=== PATIENT | male | born 1945 | race Hispanic/Latino ===

== ENCOUNTER 2018-05-03 12:13 | Inpatient (IN) | payer OTHER ==
--- NOTE | 2018-05-03 13:08 | RAD REPORT ---
EXAM DESCRIPTION: RAD - Chest Single View - 05/03/2018 12:58 pm CLINICAL HISTORY: CHEST PAIN Chest pain. COMPARISON: CHEST SINGLE VIEW dated 04/16/2014; CHEST SINGLE VIEW dated 07/24/2010 FINDINGS: Portable technique limits examination quality. The lungs are grossly clear. The heart is normal in size. No displaced fractures. IMPRESSION: No acute intrathoracic process suspected.
[2018-05-03] MEDS ORDERED: ASPIRIN 81 MG CHEWABLE TABLET ONE ×2 (13:32→14:07)
[2018-05-03] MEDS ORDERED: FAMOTIDINE 20 MG/2 ML VIAL IV ONE (13:33)
[2018-05-03] MEDS ORDERED: METOPROLOL TAR 25 MG TAB ONE (13:33)
[2018-05-03] MEDS ORDERED: ENOXAPARIN 80 MG/0.8 ML SQ ONE (13:33)
[2018-05-03] MEDS ORDERED: NA CHLORIDE 0.9% 1,000 ML ONE (13:33)
[2018-05-03 13:36] LABS: ALT/SGPT 29 U/L (12-78); AST/SGOT 24 U/L (15-37); Albumin 3.8 g/dL (3.4-5.0); Alkaline Phosphatase 84 U/L (45-117); BUN Blood Urea Nitrogen 10 mg/dL (7-18); Bicarbonate 28 mmol/L (21-32); Bilirubin Direct < 0.1 mg/dL (0-0.2); Bilirubin Total 0.4 mg/dL (0.2-1.0); Glucose Level 120 mg/dL (74-106); Magnesium 2.4 mg/dL (1.8-2.4); NT PRO-BNP 452 pg/mL (<125); Potassium 3.6 mmol/L (3.5-5.1); Protein, Total 7.9 g/dL (6.4-8.2); Sodium Level 135 mmol/L (136-145); Troponin (Emerg Dept Use Only) 0.12 ng/mL (0.0-0.045)
[2018-05-03 13:41] LABS: Protime INR 0.98
[2018-05-03 13:45] LABS: Absolute Lymphocytes (CBC) 1.9 K/uL (0.7-4.9); Absolute Monocytes 0.6 K/uL (0.1-1.3); Absolute Neutrophil 3.3 K/uL (1.8-8.0); Basophils % 0.9 % (0-1.3); Eosinophils % 5.4 % (0-4.4); Hematocrit 44.1 % (39.6-49.0); Lymphocytes % 30.9 % (15.3-44.8); Monocytes % 10.3 % (3.3-12.3); RBC Red Blood Cell Count 4.68 M/uL (4.33-5.43)
--- NOTE | 2018-05-03 13:53 | ER ---
Nurse's Notes [facility] Name: Matti Lyles Sr Age: 72 yrs Sex: Male : 1945 Arrival Date: 05/03/2018 Time: 12:18 Bed 20 Private MD: None, None Diagnosis: Other chest pain;Non-ST elevation (NSTEMI) myocardial infarction;Essential (primary) hypertension Presentation: 05/03 12:26 Presenting complaint: Patient states: Left leg pain for 1 month and sternal chest pain aj that started this AM. Reports "real bad heartburn" recently. Transition of care: patient was not received from another setting of care. Onset of symptoms was May 03, 2018. Risk Assessment: Do you want to hurt yourself or someone else? Patient reports no desire to harm self or others. Initial Sepsis Screen: Does the patient meet any 2 criteria? No. Patient's initial sepsis screen is negative. Does the patient have a suspected source of infection? No. Patient's initial sepsis screen is negative. Care prior to arrival: None. 12:26 Method Of Arrival: Ambulatory aj 12:26 Acuity: MIGUEL 2 aj Triage Assessment: 12:27 General: Appears in no apparent distress. comfortable, Behavior is calm, cooperative, aj appropriate for age. Pain: Complains of pain in mid-sternal area and left leg. Neuro: Level of Consciousness is awake, alert, obeys commands, Oriented to person, place, time, situation, Appropriate for age. Cardiovascular: Reports chest pain, Capillary refill < 3 seconds in bilateral fingers Patient's skin is warm and dry. Respiratory: Airway is patent Respiratory effort is even, unlabored, Respiratory pattern is regular, symmetrical. Derm: Skin is intact, is healthy with good turgor, Skin is pink, warm \\T\\ dry. normal. Musculoskeletal: Reports pain in left leg. Historical: - Allergies: 12:27 No Known Allergies; aj - Home Meds: 12:27 aspirin 325 mg Oral TbEC 1 tab once daily [Active]; aj - PMHx: 12:27 None; aj - PSHx: 12:27 Colonoscopy; aj - Immunization history:: Adult Immunizations not up to date. - Social history:: Smoking status: Patient/guardian denies using tobacco. - Ebola Screening: : Patient negative for fever greater than or equal to 101.5 degrees Fahrenheit, and additional compatible Ebola Virus Disease symptoms Patient denies exposure to infectious person Patient denies travel to an Ebola-affected area in the 21 days before illness onset No symptoms or risks identified at this time. - Family history:: not pertinent. Screenin:38 Abuse screen: Denies threats or abuse. Denies injuries from another. Nutritional sv screening: No deficits noted. Tuberculosis screening: No symptoms or risk factors identified. Fall Risk None identified. Assessment: 13:20 General: Appears in no apparent distress. comfortable, well developed, Behavior is sv calm, cooperative, appropriate for age. Pain: Complains of pain in anterior aspect of left upper chest Pain does not radiate. Pain currently is 4 out of 10 on a pain scale. Is intermittent. Neuro: Level of Consciousness is awake, alert, obeys commands, Oriented to person, place, time, situation, Moves all extremities. Full function Speech is normal. Cardiovascular: Heart tones S1 S2 present Patient's skin is warm and dry. Pulses are 3+ in right radial artery and left radial artery. Respiratory: Respiratory effort is even, unlabored, Respiratory pattern is regular, symmetrical, Breath sounds are clear bilaterally. Denies shortness of breath. GI: Reports indigestion. Derm: Skin is pink, warm \\T\\ dry. 14:10 Reassessment: Patient appears in no apparent distress at this time. Patient and/or sv family updated on plan of care and expected duration. Pain level reassessed. Patient is alert, oriented x 3, equal unlabored respirations, skin warm/dry/pink. 14:30 Reassessment: Patient appears in no apparent distress at this time. Patient and/or ss family updated on plan of care and expected duration. Pain level reassessed. Son remains at bedside. Pt reports feeling better. Awaiting for Dr. Rosenbaum' consultation. Patient is aware of admission to ICU for further evaluation and treatment. Patient states feeling better. Patient states symptoms have improved. 15:06 Reassessment: Dr. Rosenbaum at bedside. ss 15:06 Reassessment: Patient appears in no apparent distress at this time. Patient and/or ss family updated on plan of care and expected duration. Pain level reassessed. Patient is alert, oriented x 3, equal unlabored respirations, skin warm/dry/pink. 15:15 Reassessment: Dr. Rosenbaum has told patient and family member that he shall have ss angioplasty with possible stent placement in the morning. 17:12 Reassessment: Patient appears in no apparent distress at this time. Patient and/or sv family updated on plan of care and expected duration. Pain level reassessed. Patient is alert, oriented x 3, equal unlabored respirations, skin warm/dry/pink. Left a voicemail on Dr Black's cell phone regarding vitals. 17:15 Reassessment: Pt given dinner tray. sv 17:45 Reassessment: Called Dr Black. Informed her of pt's recent vitals. Medication ordered, sv Lisinopril 10 mg PO x 1. Vital Signs: 12:27 BP 190 / 88; Pulse 59; Resp 20; Temp 97.7; Pulse Ox 100% on R/A; Weight 86.18 kg; aj Height 5 ft. 10 in. (177.80 cm); 13:45 BP 194 / 80; Pulse 61 MON; Resp 21; Pulse Ox 100% ; sv 14:30 BP 198 / 87; Pulse 65; Resp 15; Pulse Ox 99% ; ss 15:00 BP 135 / 93; Pulse 67; Resp 16; Pulse Ox 100% ; ss 15:30 BP 152 / 103; Pulse 61; Resp 19; Pulse Ox 98% ; ss 16:00 BP 167 / 97; Pulse 56; Resp 19; Pulse Ox 98% ; sv 17:08 BP 196 / 91; Pulse 57; Resp 16; Pulse Ox 98% ; sv 12:27 Body Mass Index 27.26 (86.18 kg, 177.80 cm) aj 13:45 Sinus Rhythm sv ED Course: 12:18 Patient arrived in ED. sb2 12:19 None, None is Private Physician. sb2 12:27 Triage completed. aj 12:27 Arm band placed on left wrist. Patient placed in waiting room, Patient No ER rooms aj available at this time. 2 rooms needing to be clean. 12:37 Rashida Green RN is Primary Nurse. sv 12:38 Patient has correct armband on for positive identification. Bed in low position. sv 12:47 Bret Hargrove MD is Attending Physician. skyler 12:54 X-ray completed. Portable x-ray completed in exam room. Patient tolerated procedure la2 well. 12:59 XRAY Chest (1 view) In Process Unspecified. EDMS 13:01 Initial lab(s) drawn, by me, sent to lab. Inserted saline lock: 20 gauge in right dh3 antecubital area, using aseptic technique. Blood collected. 13:10 US Extremity Venous W Compression Saurabh In Process Unspecified. EDMS 13:20 monitoring and evaluation advisor on. Pulse ox on. NIBP on. Door closed. Warm blanket given. Head of bed sv elevated. 13:20 Patient maintains SpO2 saturation greater than 95% on room air. sv 13:38 EKG done, by lead slot technician. reviewed by Bret Hargrove MD. at1 13:52 Geneva Black MD is Hospitalizing Provider. skyler 14:05 EKG done, by lead slot technician. reviewed by Bret Hargrove MD. tc 14:34 Ultrasound completed. Patient tolerated well. aa4 17:44 No provider procedures requiring assistance completed. Patient admitted, IV remains in sv place. intact. Administered Medications: 13:34 Drug: Pepcid 20 mg Route: IVP; Site: right antecubital; sv 14:02 Follow up: Response: No adverse reaction sv 13:35 Drug: Lovenox 1 mg/kg Route: Sub-Q; Site: right lower abdomen; sv 14:03 Follow up: Response: No adverse reaction sv 13:35 Drug: Lopressor 25 mg Route: PO; sv 14:03 Follow up: Response: No adverse reaction sv 13:35 Drug: NS 0.9% 1000 ml Route: IV; Rate: 75 ml/hr; Site: right antecubital; sv 17:44 Follow up: Response: No adverse reaction; IV Status: Infusion continued upon admission sv 13:36 CANCELLED (pt took an ASA 325 mg PO this morning): Aspirin 81 mg PO once sv 14:10 Drug: Zofran 4 mg Route: IVP; Site: right antecubital; sv 14:30 Follow up: Response: No adverse reaction sv 14:12 Drug: PlaVIX 600 mg Route: PO; sv 14:30 Follow up: Response: No adverse reaction sv 14:12 Drug: morphine 2 mg Route: IVP; Site: right antecubital; sv 14:30 Follow up: Response: No adverse reaction sv 14:12 Drug: Aspirin 81 mg Route: PO; sv 14:30 Follow up: Response: No adverse reaction sv 14:38 Not Given (Physician Discretion): Zocor 40 mg PO once ss 14:38 Drug: Lipitor 40 mg Route: PO; ss 15:39 Follow up: Response: No adverse reaction ss 17:54 Drug: Lisinopril 10 mg Route: PO; sv 17:54 Follow up: Response: Medication administered at discharge. sv Outcome: 13:52 Decision to Hospitalize by Provider. skyler 17:44 Admitted to ICU accompanied by nurse, accompanied by tech, family with patient, via sv stretcher, room 6, with chart, Report called to Robina HIGHTOWER 17:44 Condition: stable 17:44 Instructed on the need for admit. 18:18 Patient left the ED. sv Signatures: Dispatcher [employer] EDRashida Zacarias RN Bebe Daniel RN Bret Du MD MD cha Frazier, Amanda aa4 Khloe Rabago RN RN ss Gonzales, Amanda, heating and ventilation engineer EKG Tat1 Jane Herndon, heating and ventilation engineer EKG Ttc Waleska Edouard3 Kasey Purcell2 Alecia Carias2 Corrections: (The following items were deleted from the chart) 12:30 12:27 Arm band placed on left wrist. Patient placed in an exam room, bridgett urias 12:33 12:26 Acuity: MIGUEL 3 bridgett urias
--- NOTE | 2018-05-03 13:53 | EDPHYS ---
Physician Documentation [facility] Name: Matti Lyles Sr Age: 72 yrs Sex: Male : 1945 Arrival Date: 05/03/2018 Time: 12:18 Bed 20 Private MD: None, None ED Physician Bret Hargrove HPI: 05/03 13:45 This 72 yrs old Male presents to ER via Ambulatory with complaints of Chest skyler Pain > 30 y/o, Leg Pain. 13:45 The patient or guardian reports chest pain that is located primarily in the anterior skyler chest wall, left. Onset: just prior to arrival, this morning. The pain does not radiate. Associated signs and symptoms: The patient has no apparent associated signs or symptoms. The chest pain is described as a pressure. Duration: The patient or guardian reports multiple episodes, that wax and wane. Modifying factors: The symptoms are alleviated by nothing. Severity of pain: At its worst the pain was mild moderate in the emergency department the pain is unchanged. The patient has not experienced similar symptoms in the past. Historical: - Allergies: 12:27 No Known Allergies; aj - Home Meds: 12:27 aspirin 325 mg Oral TbEC 1 tab once daily [Active]; aj - PMHx: 12: None; aj - PSHx: 12: Colonoscopy; aj - Immunization history:: Adult Immunizations not up to date. - Social history:: Smoking status: Patient/guardian denies using tobacco. - Ebola Screening: : Patient negative for fever greater than or equal to 101.5 degrees Fahrenheit, and additional compatible Ebola Virus Disease symptoms Patient denies exposure to infectious person Patient denies travel to an Ebola-affected area in the 21 days before illness onset No symptoms or risks identified at this time. - Family history:: not pertinent. ROS: 13:45 Constitutional: Negative for fever, chills, and weight loss, Eyes: Negative for injury, skyler pain, redness, and discharge, ENT: Negative for injury, pain, and discharge, Neck: Negative for injury, pain, and swelling, Respiratory: Negative for shortness of breath, cough, wheezing, and pleuritic chest pain, Abdomen/GI: Negative for abdominal pain, nausea, vomiting, diarrhea, and constipation, Back: Negative for injury and pain, : Negative for injury, bleeding, discharge, and swelling, MS/Extremity: Negative for injury and deformity, Skin: Negative for injury, rash, and discoloration, Neuro: Negative for headache, weakness, numbness, tingling, and seizure, Psych: Negative for depression, anxiety, suicide ideation, homicidal ideation, and hallucinations, Allergy/Immunology: Negative for hives, rash, and allergies, Endocrine: Negative for neck swelling, polydipsia, polyuria, polyphagia, and marked weight changes, Hematologic/Lymphatic: Negative for swollen nodes, abnormal bleeding, and unusual bruising. 13:45 Cardiovascular: Positive for chest pain, of the left clavicle and anterior aspect of left upper chest and left leg. 13:45 MS/extremity: Positive for pain, of the left leg. Exam: 13:45 Constitutional: This is a well developed, well nourished patient who is awake, alert, skyler and in no acute distress. Head/Face: Normocephalic, atraumatic. Eyes: Pupils equal round and reactive to light, extra-ocular motions intact. Lids and lashes normal. Conjunctiva and sclera are non-icteric and not injected. Cornea within normal limits. Periorbital areas with no swelling, redness, or edema. ENT: Nares patent. No nasal discharge, no septal abnormalities noted. Tympanic membranes are normal and external auditory canals are clear. Oropharynx with no redness, swelling, or masses, exudates, or evidence of obstruction, uvula midline. Mucous membranes moist. Neck: Trachea midline, no thyromegaly or masses palpated, and no cervical lymphadenopathy. Supple, full range of motion without nuchal rigidity, or vertebral point tenderness. No Meningismus. Chest/axilla: Normal chest wall appearance and motion. Nontender with no deformity. No lesions are appreciated. Cardiovascular: Regular rate and rhythm with a normal S1 and S2. No gallops, murmurs, or rubs. Normal PMI, no JVD. No pulse deficits. Respiratory: Lungs have equal breath sounds bilaterally, clear to auscultation and percussion. No rales, rhonchi or wheezes noted. No increased work of breathing, no retractions or nasal flaring. Abdomen/GI: Soft, non-tender, with normal bowel sounds. No distension or tympany. No guarding or rebound. No evidence of tenderness throughout. Back: No spinal tenderness. No costovertebral tenderness. Full range of motion. Male : Normal genitalia with no discharge or lesions. Skin: Warm, dry with normal turgor. Normal color with no rashes, no lesions, and no evidence of cellulitis. Neuro: Awake and alert, GCS 15, oriented to person, place, time, and situation. Cranial nerves II-XII grossly intact. Motor strength 5/5 in all extremities. Sensory grossly intact. Cerebellar exam normal. Normal gait. Psych: Awake, alert, with orientation to person, place and time. Behavior, mood, and affect are within normal limits. 13:45 Musculoskeletal/extremity: Extremities: grossly normal except: noted in the left leg: pain. 13:51 Musculoskeletal/extremity: DVT Exam: No signs of deep vein thrombosis. no pain, no skyler swelling, no tenderness, negative Homans' sign noted on exam, no appreciated bluish discoloration, no erythema, no increased warmth, varicose veins. Vital Signs: 12:27 BP 190 / 88; Pulse 59; Resp 20; Temp 97.7; Pulse Ox 100% on R/A; Weight 86.18 kg; aj Height 5 ft. 10 in. (177.80 cm); 13:45 BP 194 / 80; Pulse 61 MON; Resp 21; Pulse Ox 100% ; sv 14:30 BP 198 / 87; Pulse 65; Resp 15; Pulse Ox 99% ; ss 15:00 BP 135 / 93; Pulse 67; Resp 16; Pulse Ox 100% ; ss 15:30 BP 152 / 103; Pulse 61; Resp 19; Pulse Ox 98% ; ss 16:00 BP 167 / 97; Pulse 56; Resp 19; Pulse Ox 98% ; sv 17:08 BP 196 / 91; Pulse 57; Resp 16; Pulse Ox 98% ; sv 12:27 Body Mass Index 27.26 (86.18 kg, 177.80 cm) 13:45 Sinus Rhythm sv MDM: 12:47 Patient medically screened. [facility] 13:47 Data reviewed: vital signs, nurses notes, lab test result(s), EKG, radiologic studies, [facility] CT scan, plain films. 05/03 12:38 Order name: Basic Metabolic Panel; Complete Time: 13:48 05/03 12:38 Order name: CBC with Diff; Complete Time: 14:08 05/03 12:38 Order name: LFT's; Complete Time: 13:48 sv 05/03 12:38 Order name: Magnesium; Complete Time: 13:48 sv 05/03 12:38 Order name: NT PRO-BNP; Complete Time: 13:48 sv 05/03 12:38 Order name: PT-INR; Complete Time: 14:08 sv 05/03 12:38 Order name: Troponin (emerg Dept Use Only); Complete Time: 13:48 sv 05/03 12:50 Order name: Urine Culture [facility] 05/03 12:50 Order name: Lipase; Complete Time: 13:48 skyler 05/03 14:01 Order name: CBC with Automated Diff EDMS 05/03 14:01 Order name: CBC with Automated Diff EDMS 05/03 14:01 Order name: CBC with Automated Diff EDMS 05/03 14:01 Order name: CBC with Automated Diff EDMS 05/03 14:01 Order name: CKMB Creatine Kinase MB EDMS 05/03 14:01 Order name: CKMB Creatine Kinase MB EDMS 05/03 14:01 Order name: CKMB Creatine Kinase MB EDMS 05/03 14:01 Order name: CKMB Creatine Kinase MB EDMS 05/03 14:01 Order name: Comprehensive Metabolic Panel EDMS 05/03 14:01 Order name: Comprehensive Metabolic Panel EDMS 05/03 14:01 Order name: Comprehensive Metabolic Panel EDMS 05/03 14:01 Order name: Comprehensive Metabolic Panel EDMS 05/03 14:01 Order name: Lipid Profile EDMS 05/03 14:01 Order name: Lipid Profile EDMS 05/03 14:01 Order name: Magnesium EDMS 05/03 14:01 Order name: Magnesium EDMS 05/03 14:01 Order name: Magnesium EDMS 05/03 14:01 Order name: Magnesium EDMS 05/03 14:01 Order name: Phosphorus EDMS 05/03 14:01 Order name: Phosphorus EDMS 05/03 14:01 Order name: Phosphorus EDMS 05/03 12:38 Order name: XRAY Chest (1 view); Complete Time: 13:48 sv 05/03 12:38 Order name: EKG; Complete Time: 12:38 sv 05/03 12:38 Order name: Cardiac monitoring; Complete Time: 13:36 sv 05/03 12:38 Order name: EKG - Nurse/Tech; Complete Time: 13:36 sv 05/03 12:38 Order name: IV Saline Lock; Complete Time: 13:06 sv 05/03 12:38 Order name: Labs collected and sent; Complete Time: 13:06 sv 05/03 12:50 Order name: US Extremity Venous W Compression Saurabh; Complete Time: 15:27 [facility] 05/03 13:49 Order name: EKG; Complete Time: 13:50 [facility] 05/03 14:01 Order name: CONS Physician Consult EDSD 05/03 14:01 Order name: Heart Healthy [facility]SD 05/03 14:01 Order name: Echo with Doppler [facility] 05/03 14:01 Order name: Troponin I [facility] 05/03 14:01 Order name: Troponin I [facility] 05/03 14:01 Order name: Troponin I [facility] 05/03 14:01 Order name: Troponin I [facility] 05/03 14:01 Order name: Thyroid Stimulating Hormone [facility] 05/03 14:01 Order name: Thyroid Stimulating Hormone [facility] 05/03 14:41 Order name: Urine Dipstick--Ancillary (enter results) 05/03 16:19 Order name: Urine Dipstick-Ancillary [facility] 05/03 12:38 Order name: O2 Per Protocol; Complete Time: 13:06 05/03 12:38 Order name: O2 Sat Monitoring; Complete Time: 13:06 05/03 12:50 Order name: Urine Dipstick-Ancillary (obtain specimen); Complete Time: 14:38 [facility] 05/03 13:49 Order name: EKG - Nurse/Tech; Complete Time: 14:01 [facility] Administered Medications: 13:34 Drug: Pepcid 20 mg Route: IVP; Site: right antecubital; sv 14:02 Follow up: Response: No adverse reaction sv 13:35 Drug: Lovenox 1 mg/kg Route: Sub-Q; Site: right lower abdomen; sv 14:03 Follow up: Response: No adverse reaction sv 13:35 Drug: Lopressor 25 mg Route: PO; sv 14:03 Follow up: Response: No adverse reaction sv 13:35 Drug: NS 0.9% 1000 ml Route: IV; Rate: 75 ml/hr; Site: right antecubital; sv 17:44 Follow up: Response: No adverse reaction; IV Status: Infusion continued upon admission sv 13:36 CANCELLED (pt took an ASA 325 mg PO this morning): Aspirin 81 mg PO once sv 14:10 Drug: Zofran 4 mg Route: IVP; Site: right antecubital; sv 14:30 Follow up: Response: No adverse reaction sv 14:12 Drug: PlaVIX 600 mg Route: PO; sv 14:30 Follow up: Response: No adverse reaction sv 14:12 Drug: morphine 2 mg Route: IVP; Site: right antecubital; sv 14:30 Follow up: Response: No adverse reaction sv 14:12 Drug: Aspirin 81 mg Route: PO; sv 14:30 Follow up: Response: No adverse reaction sv 14:38 Not Given (Physician Discretion): Zocor 40 mg PO once ss 14:38 Drug: Lipitor 40 mg Route: PO; ss 15:39 Follow up: Response: No adverse reaction ss 17:54 Drug: Lisinopril 10 mg Route: PO; sv 17:54 Follow up: Response: Medication administered at discharge. sv Disposition: 05/03/18 13:52 Hospitalization ordered by Geneva Black for Inpatient Admission. Preliminary diagnosis are Other chest pain, Non-ST elevation (NSTEMI) myocardial infarction, Essential (primary) hypertension. - Bed requested for Intensive Care Unit. - Status is Inpatient Admission. sv - Condition is Fair. - Problem is new. - Symptoms have improved. UTI on Admission? No Signatures: Dispatcher [employer] Rashida Watson RN RN sv Myers, Amanda, RN RN aj Anderson, Corey, MD MD cha Smirch, Shelby, RN RN ss Corrections: (The following items were deleted from the chart) 13:36 12:50 Aspirin 81 mg PO once ordered. replaced by [facility] 17:29 13:52 Hospitalization Ordered by Geneva Black MD for Inpatient Admission. Preliminary sv diagnosis is Other chest pain; Non-ST elevation (NSTEMI) myocardial infarction; Essential (primary) hypertension. Bed requested for Intensive Care Unit. Status is Inpatient Admission. Condition is Fair. Problem is new. Symptoms have improved. UTI on Admission? No. [facility] 18:18 17:29 05/03/2018 13:52 Hospitalization Ordered by Geneva Black MD for Inpatient sv Admission. Preliminary diagnosis is Other chest pain; Non-ST elevation (NSTEMI) myocardial infarction; Essential (primary) hypertension. Bed requested for Intensive Care Unit. Status is Inpatient Admission. Condition is Fair. Problem is new. Symptoms have improved. UTI on Admission? No. sv
[2018-05-03] MEDS ORDERED: MORPHINE 4 MG/ML SYR ONE (14:07)
[2018-05-03] MEDS ORDERED: ONDANSETRON 4 MG/2 ML VIAL ONE (14:07)
[2018-05-03] MEDS ORDERED: CLOPIDOGREL 75 MG TABLET ONE (14:07)
[2018-05-03] MEDS ORDERED: ATORVASTATIN 20 MG TAB ONE (14:37)
--- NOTE | 2018-05-03 14:42 | RAD REPORT ---
EXAM DESCRIPTION: US - Extrem Venous W Compress Saurabh - 05/03/2018 2:30 pm CLINICAL HISTORY: PAIN Bilateral leg edema and swelling. COMPARISON: No comparisons TECHNIQUE: Real-time sonographic interrogation of the left and right lower extremity deep venous sys tems was performed. FINDINGS: Normal compressibility, flow augmentation, phasic flow and spontaneous flow is identified in both the left and right lower extremity deep venous systems. IMPRESSION: No sonographic evidence of left or right lower extremity deep venous thrombosis.
[2018-05-03] MEDS: ENOXAPARIN 100 MG/ML SYR SQ SCH ×2 (15:00→20:11)
[2018-05-03] MEDS ORDERED: ATORVASTATIN 20 MG TAB PO ONE (15:00)
--- NOTE | 2018-05-03 15:17 | EKG ---
Test Date: 2018-05-03 Test Time: 13:54:23 [employer]: DT/T MEASUREMENT RESULTS: Intervals: Rate: 57 CA: 156 QRSD: 88 QT: 490 QTc: 476 [place]: P: 58 CA: 156 QRS: 22 T: 78 INTERPRETIVE STATEMENTS: Sinus bradycardia with occasional premature ventricular complexes Nonspecific ST abnormality Abnormal ECG Compared to ECG 05/03/2018 13:33:36 Ventricular premature complex(es) now present Prolonged QT interval no longer present ST (T wave) deviation still present Electronically Signed On 05-03-18 15:17:19 NURSE PRN by Deniz Rosenbaum
--- NOTE | 2018-05-03 15:18 | EKG ---
Test Date: 2018-05-03 Test Time: 13:33:36 [employer]: [place] MEASUREMENT RESULTS: Intervals: Rate: 55 RI: 152 QRSD: 86 QT: 506 QTc: 484 [place]: P: 55 RI: 152 QRS: 28 T: 64 INTERPRETIVE STATEMENTS: Sinus bradycardia Nonspecific ST abnormality Prolonged QT Abnormal ECG Compared to ECG 10/24/2014 15:52:02 ST (T wave) deviation now present Prolonged QT interval now present Sinus rhythm no longer present Ventricular premature complex(es) no longer present Electronically Signed On 05-03-18 15:17:27 MOVER by Deniz Rosenbaum
[2018-05-03 16:18] LABS: Urine Blood TRACE (NEG); Urine Glucose NEGATIVE (NEG); Urine Protein 1+ (NEG); Urine Specific Gravity 1.015 (1.005-1.030)
[2018-05-03] MEDS ORDERED: LISINOPRIL 10 MG TAB ONE (18:00)
[2018-05-03] MEDS ORDERED: KCL 20 MEQ/100 mL IVPB 20 MEQ/100 ML BAG IV SCH (19:10)
[2018-05-03] MEDS ORDERED: POTASSIUM CL SA 10 MEQ TAB PO ONE (19:17)
--- NOTE | 2018-05-03 19:18 | P.HP ---
Certification for Inpatient Patient admitted to: Inpatient With expected LOS: >2 Midnights Patient will require the following post-hospital care: None Practitioner: I am a practitioner with admitting privileges, knowledge of patient current condition, hospital course, and medical plan of care. Services: Services provided to patient in accordance with Admission requirements found in Title 42 Section 412.3 of the Code of Federal Regulations Patient History Date of Service: 05/04/18 History of Present Illness: A 72-year-old man, with significant past medical history presented to the ER complaining of having some chest pain Mr. Lyles started to having chest pain today at around 11:00 a.m. He was doing some sweeping at the house when the chest pain started. The patient states that he has been having some heartburn for past 1 month which has also been getting progressively worse. Chest pain was nonradiating and remained on the left side for the most part. Was dull in nature as well. Patient currently does not take any medication and states that he is usually in his good health until this episode started. Denies having any nausea vomiting shortness of breath fever chills diarrhea constipation at this time. Patient does have a strong family history where his father of a heart attack at the age of 74 and his brother of heart attack at the age of 50. In the ER patient had an EKG done. EKGs were nonspecific, and Troponin x1 was 0.12. Patient thus was admitted to the hospital with a diagnosis of non ST elevation [place] and further workup Allergies No Known Drug Allergies Allergy (Verified 05/03/18 18:10) Unknown Home Medications: Aspirin [Aspirin EC 81 MG] 1 tab PO DAILY 05/03/18 - Past Medical/Surgical History Has patient received pneumonia vaccine in the past: Yes Diabetic: No -: cataracts bilat eyes -: cataract left eye -: colonoscopy 40 years ago, possible removal of polyp - Family History Mother -: Hypertension, Stroke Father -: Heart disease, Hypertension Brother -: Heart disease Notes: 3 brother pass from heart attacks Sister -: Cancer - Social History Smoking Status: Never smoker Alcohol use: No CD- Drugs: No Caffeine use: Yes Place of Residence: Home Review of Systems 10-point ROS is otherwise unremarkable Physical Examination - Vital Signs Temperature: 97.7 F Blood Pressure: 182/79 Pulse: 58 Respirations: 17 Pulse Ox (%): 100 - Physical Exam General: Alert, In no apparent distress HEENT: Atraumatic, PERRLA, Mucous membr. moist/pink, EOMI, Sclerae nonicteric Neck: Supple, 2+ carotid pulse no bruit, No LAD, Without JVD or thyroid abnormality Respiratory: Clear to auscultation bilaterally, Normal air movement Cardiovascular: Regular rate/rhythm, Normal S1 S2 Gastrointestinal: Normal bowel sounds, No tenderness Musculoskeletal: No tenderness Integumentary: No rashes Neurological: Normal gait, Normal speech, Normal strength at 5/5 x4 extr, Normal tone, Normal affect Lymphatics: No axilla or inguinal lymphadenopathy - Studies Laboratory Data (last 24 hrs) 05/03/18 13:01: Lipase 127 05/03/18 13:01: PT 11.6, INR 0.98 05/03/18 13:01: WBC 6.2, Hgb 15.5, Hct 44.1, Plt Count 245 05/03/18 13:01: Sodium 135 L, Potassium 3.6, BUN 10, Creatinine 1.26, Glucose 120 H, Magnesium 2.4, Total Bilirubin 0.4, AST 24, ALT 29, Alkaline Phosphatase 84 Assessment and Plan - Problems (Diagnosis) (1) NSTEMI (non-ST elevated myocardial infarction) Status: Acute Plan: Non ST elevated IL. -troponin x1 elevated. EKG with nonspecific changes -cardiology consulted. Appreciated recommendations at this -patient scheduled for cardiac catheterization tomorrow morning -will repeat troponin x2 while here in the hospital -started on beta-adam, statin, aspirin and weight based Lovenox at this time. -will follow up with results after cardiac catheterization Discharge Plan: Other Plan to discharge in: Greater than 2 days - Advance Directives Does patient have a Living Will: No Does patient have a Durable POA for Healthcare: No - Code Status/Comfort Care Code Status Assessed: Yes Critical Care: Yes
[2018-05-03 19:47] LABS: Troponin I 8.51 ng/mL (0.0-0.045)
--- NOTE | 2018-05-03 20:16 | CON ---
History Of Present Illness: A 72-year-old man. Mr. Lyles started to having chest pain today. He was doing some sweeping, the chest pain mostly went away when he stopped sweeping, some lingered, he came to the ER. EKGs were nonspecific, not normal. Troponin is 0.12 and he was admitted to the hosp ital to see if he has underlying CAD, and if we should call this a non-ST elevation NE. The patient has no previous history of heart disease. No history of stroke. Medications: His outpatient medications have been none. Since being here, he has been given Lovenox, aspirin, Plavix, and Pepcid. Social History: He uses no tobacco. No illegal drugs. Rare alcohol. Physical Examination: General: He is alert, oriented, pleasant, obese, not in any distress. HEENT: Normal. Lungs: Clear. Heart Exam: Within normal limits. Abdomen: Soft. Extremities: Normal. Distal pulses are normal. Impression: The patient has a non-ST elevation myocardial infarction. He should undergo cardiac cat h and possible stent. We will do that tomorrow. The patient and his son both had a discussion, I pantoja d a chance to answer questions about the procedure, its potential benefits, indications, risks. They understand that he might get a stent tomorrow, he might not need a stent, he may need coronary bypass surgery, and they agreed to pr oceed. ENEDINA Voice ID: [id number] Report ID: [id number]
[2018-05-03] MEDS ORDERED: ATORVASTATIN 40 MG TAB PO SCH (21:00)
[2018-05-03] MEDS ORDERED: NITROGLYCERIN 0.4 MG/TAB SL ONE (21:17)
[2018-05-03 22:29] LABS: Troponin I 12.4 ng/mL (0.0-0.045)
[2018-05-03 22:31] LABS: CKMB Creatine Kinase MB 37.5 ng/mL (0.3-3.6)
[2018-05-04] MEDS ORDERED: METOPROLOL XL 25 MG TAB PO SCH (06:00)
[2018-05-04 06:42] LABS: Absolute Monocytes 0.7 K/uL (0.1-1.3); Absolute Neutrophil 3.7 K/uL (1.8-8.0); Basophils % 1.2 % (0-1.3); Eosinophils % 6.1 % (0-4.4); Hematocrit 43.4 % (39.6-49.0); Lymphocytes % 28.9 % (15.3-44.8); Monocytes % 10.7 % (3.3-12.3); RBC Red Blood Cell Count 4.59 M/uL (4.33-5.43)
[2018-05-04] MEDS ORDERED: HEPA 1000U/500MLS 1,000 UNIT/500 ML BAG IV ONE (07:07)
[2018-05-04] MEDS ORDERED: LIDOCAINE 1% MPF 5 ML VIAL ONE (07:07)
[2018-05-04] MEDS ORDERED: MIDAZOLAM HCL 2 MG/2 ML INJ ONE ×2 (07:08→07:48)
[2018-05-04] MEDS ORDERED: FENTANYL CITR 100 MCG/2 ML ONE (07:08)
[2018-05-04] MEDS ORDERED: NITROGLYCERIN 100 MCG/ML SYR (for cath lab use only) IV ONE (07:15)
[2018-05-04] MEDS ORDERED: HEPARIN 5000 UNIT/ML 1 ML VIAL ONE (07:15)
[2018-05-04] MEDS ORDERED: NICARDIPINE HCL 25 MG/10 ML IV ONE (07:15)
[2018-05-04 07:16] LABS: Albumin 3.4 g/dL (3.4-5.0); Bilirubin Total 1.2 mg/dL (0.2-1.0); Magnesium 2.4 mg/dL (1.8-2.4); Phosphorus 3.1 mg/dL (2.5-4.9); Potassium 4.3 mmol/L (3.5-5.1); Protein, Total 7.1 g/dL (6.4-8.2)
[2018-05-04] MEDS ORDERED: NITROGLYCERIN/D5W 0 MG/0 ML BTL IV ONE (07:16)
[2018-05-04] MEDS ORDERED: NA CHLORIDE 0.9% 0 ML ONE (07:16)
[2018-05-04] MEDS ORDERED: ATROPINE SULF 1 MG/10 ML SYR IV ONE (07:16)
[2018-05-04 07:18] LABS: Thyroid Stimulating Hormone 4.18 uIU/mL (0.360-3.740)
[2018-05-04 07:19] LABS: CKMB Creatine Kinase MB 31.3 ng/mL (0.3-3.6)
[2018-05-04 07:20] LABS: Troponin I 12.2 ng/mL (0.0-0.045)
[2018-05-04] MEDS ORDERED: NA CHLORIDE 0.9% 500 ML ONE (07:35)
[2018-05-04] MEDS ORDERED: ENOXAPARIN 40 MG/0.4 ML SQ SCH (09:00)
[2018-05-04] MEDS ORDERED: NITROGLYCERIN 0.4 MG/TAB SL PRN (09:00)
[2018-05-04] MEDS ORDERED: ASPIRIN EC 81 MG TAB PO SCH (09:00)
[2018-05-04] MEDS ORDERED: NA CHLORIDE 0.9% 1,000 ML IV SCH (09:00)
[2018-05-04] MEDS ORDERED: ACETAMINOPHEN 325 MG TABLET PO PRN (09:00)
--- NOTE | 2018-05-04 11:25 | OP ---
Date of Procedure: 05/04/2018 Surgeon: Edison Spring MD Tree Specialist: Candace Allen. Admitted on 05/03/[address] Black's service for non-ST elevation myocardial infarction. Today 06/2018, he underwent a left heart catheterization, selective coronary arteriogram, left ventriculogra m. Indication: Non-ST elevation myocardial infarction. Procedure In Detail: The patient had a 6-Turkish sheath introduced in the right common femoral artery . He had 2 mg of Versed and 50 mg of fentanyl given for IV sedation. Angiography of the common femo ral artery was normal. StarClose was used to close the case. Wilmer catheter 6-Turkish left main an d right main were injected. The findings are consistent with severe coronary artery disease. He had a 90% right main and 90% left main, 80% mid LAD stenosis, 80% proximal circumflex stenosis. He had a normal ejection fraction, normal left ventricular end-diastolic pressure of 11 mmHg. There were no complications. Blood Loss: 5 cc. Anesthesia: Total conscious sedation was 30 minutes. Postoperative Diagnosis: Severe coronary artery disease. Plan: To transfer to [place] for CABG. ROLAND/KALA Voice ID: [id number] Report ID: [id number]
--- NOTE | 2018-05-04 17:19 | P.DS ---
Admission Date: 05/03/18 Discharge Date: 05/04/18 Disposition: TRANSFER TO [facility] Reason for Admission: Chest pain Consultations: Cardiology Procedures: Cardiac catheterization - Problems (1) NSTEMI (non-ST elevated myocardial infarction) Status: Acute Brief History of Present Illness: A 72-year-old man, with significant past medical history presented to the ER complaining of having some chest pain Mr. Lyles started to having chest pain today at around 11:00 a.m. He was doing some sweeping at the house when the chest pain started. The patient states that he has been having some heartburn for past 1 month which has also been getting progressively worse. Chest pain was nonradiating and remained on the left side for the most part. Was dull in nature as well. Patient currently does not take any medication and states that he is usually in his good health until this episode started. Denies having any nausea vomiting shortness of breath fever chills diarrhea constipation at this time. Patient does have a strong family history where his father of a heart attack at the age of 74 and his brother of heart attack at the age of 50. In the ER patient had an EKG done. EKGs were nonspecific, and Troponin x1 was 0.12. Patient thus was admitted to the hospital with a diagnosis of non ST elevation GA and further workup Hospital Course: Overall during the hospital stay patient remained stable Patient was initially admitted to the hospital for non ST elevated GA. Was started on metoprolol, statin, aspirin, weight based Lovenox while here in the hospital. Cardiology was consulted. Who recommended getting a cardiac catheterization. Cardiac catheterization was done which was consistent with more than 3 vessel disease. Patient had 80-90% stenosis of the LAD, LMA., RMA, and proximal branches as well. Patient then was referred over to [facility] for CABG and was transferred there for further care. Under cardiothoracic surgeon. Patient was accepted at [facility] and was transferred under stable condition. Vital Signs/Physical Exam: Temp Pulse Resp BP Pulse Ox 97.7 F 58 17 182/79 H 100 05/04/18 17:17 05/04/18 17:17 05/04/18 17:17 05/04/18 17:17 05/04/18 17:17 General: Alert, In no apparent distress HEENT: Atraumatic, PERRLA, EOMI Neck: Supple, JVD not distended Respiratory: Clear to auscultation bilaterally, Normal air movement Cardiovascular: Regular rate/rhythm, Normal S1 S2 Gastrointestinal: Normal bowel sounds, No tenderness Musculoskeletal: No tenderness Integumentary: No rashes Neurological: Normal speech, Normal tone, Normal affect Lymphatics: No axilla or inguinal lymphadenopathy Laboratory Data at Discharge: WBC 7.0 K/uL (4.3-10.9) 05/04/18 06:13 Hgb 15.3 g/dL (13.6-17.9) 05/04/18 06:13 Hct 43.4 % (39.6-49.0) 05/04/18 06:13 Plt Count 226 K/uL (152-406) 05/04/18 06:13 PT 11.6 SECONDS (9.5-12.5) 05/03/18 13:01 INR 0.98 05/03/18 13:01 Sodium 136 mmol/L (136-145) 05/04/18 06:13 Potassium 4.3 mmol/L (3.5-5.1) 05/04/18 06:13 BUN 13 mg/dL (7-18) 05/04/18 06:13 Creatinine 1.28 mg/dL (0.55-1.3) 05/04/18 06:13 Glucose 96 mg/dL (74-106) 05/04/18 06:13 Phosphorus 3.1 mg/dL (2.5-4.9) 05/04/18 06:13 Magnesium 2.4 mg/dL (1.8-2.4) 05/04/18 06:13 Total Bilirubin 1.2 mg/dL (0.2-1.0) H 05/04/18 06:13 AST 57 U/L (15-37) H 05/04/18 06:13 ALT 26 U/L (12-78) 05/04/18 06:13 Alkaline Phosphatase 66 U/L (45-117) 05/04/18 06:13 Troponin I 12.20 ng/mL (0.0-0.045) H* 05/04/18 06:13 Triglycerides 229 mg/dL (<150) H 05/04/18 06:13 Cholesterol 197 mg/dL (<200) 05/04/18 06:13 HDL Cholesterol 28 mg/dL (40-60) L 05/04/18 06:13 Cholesterol/HDL Ratio 7.04 05/04/18 06:13 Lipase 127 U/L (73-393) 05/03/18 13:01 Home Medications: Aspirin [Aspirin EC 81 MG] 1 tab PO DAILY 05/03/18
--- NOTE | 2018-05-05 07:33 | ECHO ---
HEIGHT: 5 ft 10 in WEIGHT: 194 lb 9 oz DATE OF STUDY: 05/04/[address]: Geneva Black MD 2-DIMENSIONAL: YES M.MODE: YES DOPPLER: YES COLOR FLOW: YES TDS: PORTABLE: DEFINITY: BUBBLE STUDY: DIAGNOSIS: NSTEMI CARDIAC HISTORY: CATHERIZATION: YES SURGERY: NO PROSTHETIC VALVE: NO PACEMAKER: NO MEASUREMENTS (cm) DIASTOLIC (NORMALS) SYSTOLIC (NORMALS) IVSd 1.3 (0.6-1.2) LA Diam 3.8 (1.9-4.0) LVEF 55% LVIDd 3.8 (3.5-5.7) LVIDs 2.8 (2.0-3.5) %FS 28% LVPWd 1.4 (0.6-1.2) Ao Diam 3.0 (2.0-3.7) 2 DIMENSIONAL ASSESSMENT: RIGHT ATRIUM: NORMAL LEFT ATRIUM: NORMAL RIGHT VENTRICLE: NORMAL LEFT VENTRICLE: NORMAL TRICUSPID VALVE: NORMAL MITRAL VALVE: NORMAL PULMONIC VALVE: NORMAL AORTIC VALVE: SCLEROSIS PERICARDIAL EFFUSION: NONE AORTIC ROOT: NORMAL LEFT VENTRICULAR WALL MOTION: NORMAL DOPPLER/COLOR FLOW: NORMAL COMMENTS: NORMAL LEFT VENTRICULAR SIZE AND FUCNTION. AORTIC SCLEROSIS WITH NO STENOSIS. NO WALL MOTION ABNORMALITY. TECHNOLOGIST: PETROS JOSUE
== END 2018-05-04 15:30 | disposition short-term general hospital (02) | DRG 282 ==
LOC: ER 12:13 → ERHOLD 13:55 → 3RD-ICU 17:51
PROVIDERS: ADMIT Family Medicine; ATTEND Family Medicine
PROC: 4A023N7 Measurement of Cardiac Sampling and Pressure, Left Heart, Percutaneous Approach (ICD-10-PCS; principal; 2018-05-04)
PROC: B211YZZ Fluoroscopy of Multiple Coronary Arteries using Other Contrast (ICD-10-PCS; 2018-05-04)
PROC: B215YZZ Fluoroscopy of Left Heart using Other Contrast (ICD-10-PCS; 2018-05-04)
DX: I21.4 Non-ST elevation (NSTEMI) myocardial infarction (principal); I25.10 Atherosclerotic heart disease of native coronary artery without angina pectoris; I10 Essential (primary) hypertension; E78.5 Hyperlipidemia, unspecified; E11.9 Type 2 diabetes mellitus without complications; Z82.49 Family history of ischemic heart disease and other diseases of the circulatory system
CPT/HCPCS: 36415; 71045; 80048; 80053; 80061; 80076; 81003; 82553; 83690; 83735; 83880; 84100; 84439; 84443; 84484; 85025; 85610; 87086; 87088; 93005; 93306; 93458; 93970; 96361; 96372; 96374; 96375; 99285; C1893; J0583; J1644; J1650; J2250; J2405; J3010; J7030

== ENCOUNTER 2019-10-25 06:11 | Day surgery (SDC) | payer OTHER ==
--- NOTE | 2019-10-24 14:51 | RAD REPORT ---
EXAM DESCRIPTION: RAD - Chest Pa And Lat (2 Views) - 10/24/2019 1:57 pm CLINICAL HISTORY: PRE OP, pending cardiac catheterization COMPARISON: Two view chest July 2018 TECHNIQUE: Frontal and lateral views of the chest were obtained. FINDINGS: The lungs are clear of acute mass or infiltrate. Interstitial pattern matches comparison. Sternotomy wires are in place. No failure or volume overload. Heart size is normal and central vasc ulature is within normal limits. No pleural effusion or pneumothorax seen. No acute bony finding no adelita. No aortic abnormality. IMPRESSION: No acute cardiopulmonary process. No significant change from comparison.
[2019-10-24 14:59] LABS: Hematocrit 37.8 % (39.6-49.0); RBC Red Blood Cell Count 4.24 M/uL (4.33-5.43)
[2019-10-24 15:00] LABS: Absolute Lymphocytes (CBC) 2.4 K/uL (0.7-4.9); Basophils % 1.3 % (0-1.3); Lymphocytes % 31.5 % (15.3-44.8); MPV 7.5 fL (7.6-11.3); Protime INR 0.96
[2019-10-24 15:17] LABS: Potassium 3.9 mmol/L (3.5-5.1)
[2019-10-25] MEDS ORDERED: NA CHLORIDE 0.9% 500 ML ONE (06:52)
[2019-10-25] MEDS ORDERED: HEPA 1000U/500MLS 1,000 UNIT/500 ML BAG IV ONE (07:00)
[2019-10-25] MEDS ORDERED: MIDAZOLAM HCL 2 MG/2 ML INJ ONE ×2 (07:00→07:33)
[2019-10-25] MEDS ORDERED: FENTANYL CITR 100 MCG/2 ML ONE (07:01)
[2019-10-25] MEDS ORDERED: ATROPINE SULF 1 MG/10 ML SYR IV ONE (07:01)
[2019-10-25 09:13] VITALS: TEMP 97.6
[2019-10-25 09:15] VITALS: O2SAT 100
[2019-10-25 10:10] VITALS: BP 170/76
--- NOTE | 2019-10-25 10:19 | OP ---
Date of Procedure: 10/25/2019 Surgeon: Edison Spring MD Garbage Collection Supervisor: Tarik Edwards. The patient is already taking statin at home and aspirin. We will continue that. He will go home af ter 2 hours of bedrest. I will see him in the office in 2 weeks. Procedure: Selective bilateral carotid angiogram. Indications: Mr. Lyles is a 74-year-old Latin-Kaz[place] male with history of dyslipidemia, coronary artery disease status post CABG in May 2018, was seen in regular followup in the office and was noted to have a carotid bruit and had a positive carotid Doppler bilaterally on the left and the righ t, worse on the left than the right. He was scheduled for a selective bilateral carotid angiogram pr ior to making final decisions. He was scheduled as an outpatient. Procedure In Detail: He was brought to the cath lab technologist today 10/25/2019. He was prepped and draped in the routine sterile fashion. He was given Versed and fentanyl for IV sedation. A 6-Serbian sheath wa s introduced in the right common femoral artery successfully after using Xylocaine in the Seldinger t echnique. Angiography there was normal. Angio-Seal was used to close the case. A JR4 catheter was used to select the right common carotid and the left common carotid. Angiography revealed normal esteban ateral carotid angiogram of the common carotid. He had a 70% occlusion of bilateral external carotid artery. The right internal carotid artery was normal. The left internal carotid artery was complet kush occluded. Complications: There were no complications. Blood Loss: 5 mL. 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 Plan is for medical therapy. Anesthesia: Total conscious sedation was 30 minutes. NB/MODL Voice ID: [id number] Report ID: [id number]
== END 2019-10-25 10:00 | disposition home or self-care (01) ==
LOC: CCL 06:11
DX: I65.23 Occlusion and stenosis of bilateral carotid arteries (principal); Z11.59 Encounter for screening for other viral diseases; I25.10 Atherosclerotic heart disease of native coronary artery without angina pectoris; I11.0 Hypertensive heart disease with heart failure; I50.22 Chronic systolic (congestive) heart failure; I48.0 Paroxysmal atrial fibrillation; E78.5 Hyperlipidemia, unspecified; K21.9 Gastro-esophageal reflux disease without esophagitis; E03.9 Hypothyroidism, unspecified; Z95.1 Presence of aortocoronary bypass graft; E66.9 Obesity, unspecified; Z68.31 Body mass index [BMI] 31.0-31.9, adult; R09.89 Other specified symptoms and signs involving the circulatory and respiratory systems
CPT/HCPCS: 93005; 85025; 80048; 36415; 85610; 85730; 71046; 36222; U0002; C1893; C1760; J2250 ×2; J3010; J7040

== ENCOUNTER 2023-10-25 11:42 | Emergency (ER) | payer OTHER ==
[2023-10-25] MEDS ORDERED: NA CHLORIDE 0.9% 1,000 ML ONE (12:38)
[2023-10-25 12:42] LABS: Absolute Basophils 0.1 K/uL (0-0.5); Absolute Eosinophils 0.5 K/uL (0-0.5); Absolute Lymphocytes (CBC) 1.7 K/uL (0.7-4.9); Absolute Monocytes 0.8 K/uL (0.1-1.3); Absolute Neutrophil 4.7 K/uL (1.8-8.0); Basophils % 0.8 % (0-1.3); Eosinophils % 6.7 % (0-4.4); Hematocrit 38.7 % (39.6-49.0); Hemoglobin 13.4 g/dL (13.6-17.9); Lymphocytes % 22.1 % (15.3-44.8); MCH 32.2 pg (27.0-35.0); MCHC 34.7 g/dL (32.0-36.0); MCV 92.7 fL (80-100); MPV 7.3 fL (7.6-11.3); Monocytes % 10.6 % (3.3-12.3); Neutrophils % 59.8 % (41.7-73.7); Platelets 234 thou/uL (152-406); RBC Red Blood Cell Count 4.18 M/uL (4.33-5.43); Red Cell Distribution Width 14.4 % (12.1-15.2)
[2023-10-25 12:52] LABS: PT Prothrombin Time 11.9 SECONDS (9.4-12.5); Protime INR 1.08
[2023-10-25 13:00] LABS: Albumin 3.8 g/dL (3.4-5.0); Anion Gap 7.7 mEq/L (5.0-15.0); Bilirubin Direct 0.2 mg/dL (0-0.2); Bilirubin Indirect, Calculated 0.7 mg/dL (0.2-0.8); Bilirubin Total 0.9 mg/dL (0.2-1.0); Globulin 3.9 g/dL (2.3-3.5); Magnesium 2.4 mg/dL (1.6-2.4); Potassium 3.7 mEq/L (3.5-5.1); Protein, Total 7.7 g/dL (6.4-8.2); Troponin High Sensitivity 11.2 pg/mL (<58.9)
[2023-10-25 13:13] LABS: Specific Gravity 1.016 (1.005-1.030); Sqamous Epithelial <5 /HPF (None Seen); Urine Bacteria None Seen /HPF (<20); Urine Bilirubin NEGATIVE (Negative); Urine Blood Negative (Negative); Urine Clarity Turbid (Clear); Urine Color Light-Yellow (Yellow); Urine Culture Reflex Order NOT NEEDED; Urine Glucose NEGATIVE (Negative); Urine Ketones NEGATIVE (Negative); Urine Microscopic Reflex YN ORDER UMIC; Urine Mucus Slight /HPF (None Seen); Urine Nitrite NEGATIVE (Negative); Urine Protein TRACE (Negative); Urine RBC <5 /HPF (None Seen); Urine Urobilinogen Normal (Normal); Urine WBC <5 /HPF (<5); Urine pH 5.5 (5.0-7.0)
--- NOTE | 2023-10-25 13:21 | RAD REPORT ---
EXAM DESCRIPTION: CT - Head Brain Wo Cont - 10/25/2023 12:10 pm CLINICAL HISTORY: SYNCOPE COMPARISON: No comparisons TECHNIQUE: Noncontrast head CT images were obtained without IV contrast. Multiplanar reformats were generated and reviewed. All CT scans are performed using dose optimization technique as appropriate and may include automated exposure control or mA/KV adjustment according to patient size. FINDINGS: No intracranial hemorrhage, mass, or edema. Midline structures are unremarkable. Normal ventricular caliber for age. Juarez-white matter differentiation is preserved, without evidence of acute infarct. No abnormal extra- axial fluid collections. Mastoid air cells and visualized portions of the paranasal sinuses are clear. No acute bony findings. IMPRESSION: No evidence of an acute intracranial process.
--- NOTE | 2023-10-25 13:29 | RAD REPORT ---
EXAM DESCRIPTION: Porsha Single View10/25/2023 1:06 pm CLINICAL HISTORY: cough COMPARISON: 2019 FINDINGS: The lungs appear clear of acute infiltrate. The heart is mildly enlarged. Post surgical changes involve chest IMPRESSION: No acute abnormalities displayed
[2023-10-25] MEDS ORDERED: NA CHLORIDE 0.9% 500 ML ONE (15:33)
--- NOTE | 2023-10-25 16:19 | RAD REPORT ---
EXAM DESCRIPTION: USCarotid Artery Bilateral10/25/2023 3:58 pm CLINICAL HISTORY: syncope COMPARISON: None FINDINGS: The velocity of the right internal carotid artery equals 125 cm/sec. The right ICA/CCA rat io 1.2 High-grade stenosis right external carotid artery The velocity of the left internal carotid artery equals cm/sec. The left ICA/CCA ratio Plaque within the right internal carotid artery appears to result in an approximately 45% stenosis Flow is not visualized within left common carotid and left internal carotid arteries. 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 Mild 0-49% stenosis Moderate 50-69% stenosis Severe 70-99% stenosis
[2023-10-25] MEDS ORDERED: CLOPIDOGREL 75 MG TABLET ONE (16:36)
--- NOTE | 2023-10-25 16:43 | EDPHYS ---
Physician Documentation [facility] Name: Matti Lyles Age: 78 yrs Sex: Male : 1945 Arrival Date: 10/25/2023 Time: 11:42 Bed 18 Private MD: ED Physician Bret Hargrove HPI: 10/24 15:12 This 78 yrs old Male presents to ER via Ambulatory with complaints of Passed skyler Out Prior To Arrival. 15:12 The patient has experienced syncope, became unresponsive. Onset: The symptoms/episode skyler began/occurred just prior to arrival. Duration: This was a single episode, that lasted 5 second(s). Context: the episode(s) was witnessed, by co-worker(s). Associated injury: The patient did not suffer any apparent associated injury. Associated signs and symptoms: The patient has no apparent associated signs or symptoms. Current symptoms: Currently, the patient is not experiencing any symptoms, the patient feels back to baseline, no decreased level of consciousness, no confusion, no dysphasia, no headache, no paralysis, no visual changes. The patient has not experienced similar symptoms in the past. Historical: - Allergies: 11:57 No Known Allergies; mb9 - Home Meds: 11:57 aspirin 325 mg Oral TbEC 1 tab once daily [Active]; mb9 - PMHx: 11:57 Hypertensive disorder; Hypercholesterolemia; Myocardial infarction; mb9 - PSHx: 11:57 cardiac bypass; mb9 - Immunization history:: Adult Immunizations up to date. - Infectious Disease History:: Denies. - Social history:: Smoking status: Patient denies any tobacco usage or history of. ROS: 15:13 Constitutional: Negative for fever, chills, and weight loss, Eyes: Negative for injury, skyler pain, redness, and discharge, ENT: Negative for injury, pain, and discharge, Neck: Negative for injury, pain, and swelling, Cardiovascular: Negative for chest pain, palpitations, and edema, Respiratory: Negative for shortness of breath, cough, wheezing, and pleuritic chest pain, Abdomen/GI: Negative for abdominal pain, nausea, vomiting, diarrhea, and constipation, Back: Negative for injury and pain, : Negative for injury, bleeding, discharge, and swelling, MS/Extremity: Negative for injury and deformity, Skin: Negative for injury, rash, and discoloration, Psych: Negative for depression, anxiety, suicide ideation, homicidal ideation, and hallucinations, Allergy/Immunology: Negative for hives, rash, and allergies, Endocrine: Negative for neck swelling, polydipsia, polyuria, polyphagia, and marked weight changes, Hematologic/Lymphatic: Negative for swollen nodes, abnormal bleeding, and unusual bruising, 15:13 Neuro: Positive for dizziness, near syncope, weakness, Exam: 15:13 Constitutional: This is a well developed, well nourished patient who is awake, alert, skyler and in no acute distress. Head/Face: Normocephalic, atraumatic. Eyes: Pupils equal round and reactive to light, extra-ocular motions intact. Lids and lashes normal. Conjunctiva and sclera are non-icteric and not injected. Cornea within normal limits. Periorbital areas with no swelling, redness, or edema. ENT: Nares patent. No nasal discharge, no septal abnormalities noted. Tympanic membranes are normal and external auditory canals are clear. Oropharynx with no redness, swelling, or masses, exudates, or evidence of obstruction, uvula midline. Mucous membranes moist. Neck: Trachea midline, no thyromegaly or masses palpated, and no cervical lymphadenopathy. Supple, full range of motion without nuchal rigidity, or vertebral point tenderness. No Meningismus. Chest/axilla: Normal chest wall appearance and motion. Nontender with no deformity. No lesions are appreciated. Cardiovascular: Regular rate and rhythm with a normal S1 and S2. No gallops, murmurs, or rubs. Normal PMI, no JVD. No pulse deficits. Respiratory: Lungs have equal breath sounds bilaterally, clear to auscultation and percussion. No rales, rhonchi or wheezes noted. No increased work of breathing, no retractions or nasal flaring. Abdomen/GI: Soft, non-tender, with normal bowel sounds. No distension or tympany. No guarding or rebound. No evidence of tenderness throughout. Back: No spinal tenderness. No costovertebral tenderness. Full range of motion. Male : Normal genitalia with no discharge or lesions. Skin: Warm, dry with normal turgor. Normal color with no rashes, no lesions, and no evidence of cellulitis. MS/ Extremity: Pulses equal, no cyanosis. Neurovascular intact. Full, normal range of motion. Neuro: Awake and alert, GCS 15, oriented to person, place, time, and situation. Cranial nerves II-XII grossly intact. Motor strength 5/5 in all extremities. Sensory grossly intact. Cerebellar exam normal. Normal gait. Psych: Awake, alert, with orientation to person, place and time. Behavior, mood, and affect are within normal limits. 15:13 ECG was reviewed by the Attending Physician. 15:15 Abdomen/GI: Exam negative for acute changes, abnormal bowel sounds, discomfort, skyler distension, guarding, hepatomegaly, injury, rectal bleed, rectal tenderness, Inspection: distension, that is mild, Bowel sounds: normal, Palpation: abdomen is soft and non-tender, in all quadrants, Liver: no appreciated palpable abnormalities, Hernia: not appreciated, 15:15 Musculoskeletal/extremity: ROM: intact in all extremities, full active range of motion, full passive range of motion, Circulation is intact in all extremities. Sensation intact. Compartment Syndrome exam of affected extremity: is normal. Weight bearing: able to fully bear weight, DVT Exam: No signs of deep vein thrombosis. no pain, no swelling, no tenderness, negative Homans' sign noted on exam, no appreciated bluish discoloration, no erythema, no increased warmth, Vital Signs: 11:56 BP 164 / 76; Pulse 66; Resp 18; Temp 97.8; Pulse Ox 95% on R/A; Weight 86.18 kg; Height mb9 5 ft. 10 in. ; Pain 0/10; 13:00 BP 124 / 71; Pulse 54; Resp 14; Pulse Ox 99% on R/A; me1 14:00 BP 123 / 85; Pulse 60; Resp 16; Pulse Ox 100% on R/A; me1 15:00 BP 179 / 83; Pulse 63; Resp 18; Pulse Ox 97% on R/A; me1 15:35 BP 162 / 73 Supine; Pulse 63; me1 15:36 BP 174 / 64 Sitting; Pulse 58; me1 15:37 BP 166 / 58 Standing; Pulse 57; me1 16:00 BP 150 / 97; Pulse 58; Resp 12; Pulse Ox 95% on R/A; me1 17:00 BP 177 / 77; Pulse 59; Resp 14; Pulse Ox 95% on R/A; me1 11:56 Body Mass Index 27.26 (86.18 kg, 177.8 cm) mb9 11:56 Pain Scale: Adult mb9 NIH Stroke Scale Scores: 15:15 NIHSS Score: 0 skyler Silvia Coma Score: 15:15 Eye Response: spontaneous(4). Motor Response: obeys commands(6). Verbal Response: skyler oriented(5). Total: 15. MDM: 11:57 Patient medically screened. skyler 15:18 Differential Diagnosis: cardiac arrhythmia, cerebrovascular accident, GI bleed, skyler idiopathic syncope, seizure, vasovagal episode, cardiac arrhythmia, CVA, generalized weakness, GI bleed, head injury, hyperventilation, hypovolemia, near-syncope, sepsis, syncope, TIA, vertigo. Data reviewed: vital signs, nurses notes, EMS record, lab test result(s), EKG, radiologic studies, CT scan, plain films. Consideration of Admission/Observation Escalation of care including admission/observation considered. I considered the following discharge prescriptions or medication management in the emergency department Medications were administered in the Emergency Department. See MAR. Independent interpretation of the following test(s) in the Emergency Department EKG: See my EKG interpretation above. Test considered but Not performed: MRI: NO MRI BRAIN. Historians other than the Patient: PT WELL INFORMED. Care significantly affected by the following chronic conditions: Hypertension, Obesity, Chronic Kidney Disease, AR, HIGH CHLESTEROL. Counseling: I had a detailed discussion with the patient and/or guardian regarding the historical points, exam findings, and any diagnostic results supporting the discharge/admit diagnosis, lab results, radiology results, the need for outpatient follow up, for definitive care, a structures engineer, a family practitioner. 16:17 ED course: DR GUADALUPE [place] , FOLLOW UP DR RASHEED 1 WEEK, VERY I,PORTANT. [facility] 10/24 11:58 Order name: Basic Metabolic Panel; Complete Time: 15:03 10/24 11:58 Order name: CBC with Diff; Complete Time: 15:03 10/24 11:58 Order name: LFT's; Complete Time: 15:03 10/24 11:58 Order name: Magnesium; Complete Time: 15:03 10/24 11:58 Order name: NT PRO-BNP; Complete Time: 15:03 10/24 11:58 Order name: PT-INR; Complete Time: 15:03 10/24 11:58 Order name: Troponin HS; Complete Time: 15:03 [facility] 10/24 11:58 Order name: Lipase; Complete Time: 15:03 [facility] 10/24 11:58 Order name: Urinalysis w/ reflexes; Complete Time: 15:03 [facility] 10/24 11:58 Order name: XRAY Chest (1 view); Complete Time: 15:03 [facility] 10/24 11:58 Order name: CT Head Brain wo Cont; Complete Time: 15:03 [facility] 10/24 15:12 Order name: US Carotid Artery Bilateral; Complete Time: 16:32 [facility] 10/24 11:58 Order name: Cardiac monitoring; Complete Time: 13:05 [facility] 10/24 11:58 Order name: EKG - Nurse/Tech; Complete Time: 13:05 [facility] 10/24 11:58 Order name: IV Saline Lock; Complete Time: 12:37 [facility] 10/24 11:58 Order name: Labs collected and sent; Complete Time: 12:37 [facility] 10/24 11:58 Order name: O2 Per Protocol; Complete Time: 12:37 [facility] 10/24 11:58 Order name: O2 Sat Monitoring; Complete Time: 12:37 [facility] 10/24 15:12 Order name: Orthostatics; Complete Time: 15:39 [facility] 10/24 15:12 Order name: PO challenge: JUICE; Complete Time: 15:36 [facility] EC:13 Rate is 55 beats/min. Rhythm is regular. QRS [facility] is Normal. MA interval is normal. QRS skyler interval is normal. QT interval is normal. No Q waves. T waves are Normal. No ST changes noted. Clinical impression: Sinus bradycardia and No evidence of ischemia. Interpreted by me. Reviewed by me. Administered Medications: 12:46 Drug: NS 0.9% IV 1000 ml IV at 1 bolus Per protocol; 1000 mL bolus Route: IV; Rate: 1 me1 bolus; Site: right antecubital; 14:08 Follow up: Response: No adverse reaction; IV Status: Completed infusion; IV Intake: me1 1000ml 15:37 Drug: NS 0.9% IV 500 ml IV at bolus once Route: IV; Rate: bolus; Site: right me1 antecubital; 17:35 Follow up: Response: No adverse reaction; IV Status: Completed infusion; IV Intake: me1 500ml 16:32 CANCELLED (Duplicate Order): [id number] mg PO once [facility] 16:42 Not Given (Patient Refused): [id number] mg PO once skyler 17:00 Drug: Aspirin PO Chewable Tablet 81 mg PO once Route: PO; me1 17:35 Follow up: Response: No adverse reaction me1 Disposition Summary: 10/25/23 16:43 Discharge Ordered Notes: Location: Home skyler Problem: new skyler Symptoms: have improved skyler Condition: Stable skyler Diagnosis - Dehydration skyler - Heat exhaustion, unspecified skyler - Syncope Near skyler - Unspecified kidney failure - CHRONIC skyler - Occlusion and stenosis of left carotid artery - TOTAL OCCLUSION LEFT CAROTID AND skyler LEFT COMMON CAROTID - Dizziness and giddiness skyler Followup: skyler - With: Private Physician - When: 2 - 3 days - Reason: Recheck today's complaints, Continuance of care, Re-evaluation by your physician Followup: skyler - With: Jesus Rasheed MD - When: 2 - 3 days - Reason: Recheck today's complaints, Re-evaluation by your physician Discharge Instructions: - Discharge Summary Sheet skyler - Dehydration, Elderly skyler - Dizziness skyler - Near-Syncope skyler - Syncope skyler - Weakness skyler - Near-Syncope, Bhva-yf-Eoke skyler - Weakness, Gdze-ge-Pvtb skyler - Aspirin and Your Heart skyler - Chronic Kidney Disease, Adult, Qogx-ew-[id number] skyler - Dizziness, Irmo-do-Ezuo skyler - Rehydration, Elderly skyler - Dehydration, Elderly, Krfw-pt-Lpqk skyler - Carotid Artery Disease skyler - Carotid Artery Disease, Hkuf-bf-Nkue skyler Forms: - Medication Reconciliation Form skyler - Antibiotic Education skyler - Prescription Opioid Use skyler - Patient Portal Instructions skyler - Leadership Thank You Letter [facility] Prescriptions: - Lipitor 20 mg Oral tablet - take 1 tablet ORAL route once; 30 tablet; Refills: 0, Product Selection [facility] Permitted - Plavix 75 mg Oral tablet - take 1 tablet ORAL route once daily; 30 tablet; Refills: 0, Product Selection skyler Permitted NIH Stroke Scale - NIH Stroke Score Date: 10/25/2023 Time: 15:15 Total Score = 0 10. Dysarthria (speech clarity - read or repeat words) - 0(Normal) 11. Extinction and Inattention (visual/tactile/auditory/spatial/personal) - 0(No abnormality) 1a. Level of Consciousness (LOC) - 0(Alert) 1b. Level of Consciousness (LOC) (Month \T\ Age) - 0(Both) 1c. LOC Commands (Open \T\ Closes Eyes/Atomic Spectroscopist) - 0(Both) 2. Best Gaze (Lateral Gaze Paresis) - 0(Normal) 3. Visual Field Loss - 0(No visual loss) 4. Facial Palsy - 0(Normal) 5a. Left Arm: Motor (10-second hold) - 0(No drift) 5b. Right Arm: Motor (10-second hold) - 0(No drift) 6a. Left Leg: Motor (5-second hold - always test supine) - 0(No drift) 6b. Right Leg: Motor (5-second hold - always test supine) - 0(No drift) 7. Limb Ataxia (finger/nose \T\ heel/mcdowell - test with eyes open) - 0(Absent) 8. Sensory Loss (pinprick arms/legs/face) - 0(Normal) 9. Best Language: Aphasia (description/naming/reading) - 0(No aphasia) Initials: skyler Signatures: Dispatcher [employer] EDMS Bret Hargrvoe MD MD cha Breneman, Mary Beth RN RN mb9 Maria Guadalupe Michelle RN RN me1 Corrections: (The following items were deleted from the chart) 11:58 11:58 Head Brain Wo Cont+CT.RAD.BRZ ordered. EDMS EDMS 16:32 16:16 Atorvastatin PO 20 mg PO once ordered. skyler holland
--- NOTE | 2023-10-25 16:43 | ER ---
[facility] Name: Matti Lyles Age: 78 yrs Sex: Male : 1945 Arrival Date: 10/25/2023 Time: 11:42 Bed 18 Private MD: Diagnosis: Dehydration;Heat exhaustion, unspecified;Syncope Near;Unspecified kidney failure-CHRONIC;Occlusion and stenosis of left carotid artery-TOTAL OCCLUSION LEFT CAROTID AND LEFT COMMON CAROTID;Dizziness and giddiness Presentation: 10/24 11:56 Chief complaint: Patient states: "I was using the restroom and went to wash my hands mb9 and passed out. I fell on the toilet and feel a little lightheaded. I'm on blood thinners but didn't hit my head.". Coronavirus screen: At this time, the client does not indicate any symptoms associated with coronavirus-19. Ebola Screen: No symptoms or risks identified at this time. Initial Sepsis Screen: Does the patient meet any 2 criteria? No. Patient's initial sepsis screen is negative. Does the patient have a suspected source of infection? No. Patient's initial sepsis screen is negative. Risk Assessment: Do you want to hurt yourself or someone else? Patient reports no desire to harm self or others. Onset of symptoms was October 25, 2023. 11:56 Method Of Arrival: Ambulatory mb9 11:56 Acuity: MIGUEL 2 mb9 Triage Assessment: 11:59 General: Appears in no apparent distress. Behavior is calm, cooperative. Pain: Denies mb9 pain. EENT: No signs and/or symptoms were reported regarding the EENT system. Neuro: Alvarado Agitation-Sedation Scale (RASS): 0 - Alert and Calm Level of Consciousness is awake, alert, obeys commands, Oriented to person, place, time, situation, Appropriate for age Reports dizziness. Cardiovascular: Patient's skin is warm and dry. Respiratory: Airway is patent Respiratory effort is even, unlabored, Respiratory pattern is regular, symmetrical. GI: No signs and/or symptoms were reported involving the gastrointestinal system. : No signs and/or symptoms were reported regarding the genitourinary system. Derm: Skin is pink, warm \\T\\ dry. Musculoskeletal: Range of motion: intact in all extremities. Historical: - Allergies: 11:57 No Known Allergies; mb9 - Home Meds: 11:57 aspirin 325 mg Oral TbEC 1 tab once daily [Active]; mb9 - PMHx: 11:57 Hypertensive disorder; Hypercholesterolemia; Myocardial infarction; mb9 - PSHx: 11:57 cardiac bypass; mb9 - Immunization history:: Adult Immunizations up to date. - Infectious Disease History:: Denies. - Social history:: Smoking status: Patient denies any tobacco usage or history of. Screenin:15 [facility] ED Fall Risk Assessment (Adult) History of falling in the last 3 months, me1 including since admission No falls in past 3 months (0 pts) Confusion or Disorientation No (0 pts) Intoxicated or Sedated No (0 pts) Impaired Gait No (0 pts) Mobility Assist Device Used No (0 pt) Altered Elimination No (0 pt) Score/Fall Risk Level 0 - 2 = Low Risk Maintained a safe environment, Provided non-skid footwear, Hourly rounding (assess needs \\T\\ fall precautionary measures) done. Abuse screen: Denies threats or abuse. Nutritional screening: No deficits noted. Tuberculosis screening: No symptoms or risk factors identified. Assessment: 12:15 General: Appears comfortable, well groomed, well developed, well nourished, Behavior is me1 calm, cooperative, appropriate for age, Reports "I was using the restroom and went to wash my hands and passed out. I fell on the toilet and feel a little lightheaded. I'm on blood thinners but didn't hit my head.". Pain: Denies pain. Neuro: Level of Consciousness is awake, alert, obeys commands, Oriented to person, place, time, situation, Appropriate for age. Neuro: Reports a syncopal episode. Cardiovascular: Capillary refill < 3 seconds Patient's skin is warm and dry. Respiratory: Airway is patent. Respiratory: Respiratory effort is even, unlabored, Respiratory pattern is regular, symmetrical. GI: No signs and/or symptoms were reported involving the gastrointestinal system. : No signs and/or symptoms were reported regarding the genitourinary system. EENT: No signs and/or symptoms were reported regarding the EENT system. Derm: Skin is intact, is healthy with good turgor, Skin is pink, warm \\T\\ dry. Musculoskeletal: No signs and/or symptoms reported regarding the musculoskeletal system. Vital Signs: 11:56 BP 164 / 76; Pulse 66; Resp 18; Temp 97.8; Pulse Ox 95% on R/A; Weight 86.18 kg; Height mb9 5 ft. 10 in. ; Pain 0/10; 13:00 BP 124 / 71; Pulse 54; Resp 14; Pulse Ox 99% on R/A; me1 14:00 BP 123 / 85; Pulse 60; Resp 16; Pulse Ox 100% on R/A; me1 15:00 BP 179 / 83; Pulse 63; Resp 18; Pulse Ox 97% on R/A; me1 15:35 BP 162 / 73 Supine; Pulse 63; me1 15:36 BP 174 / 64 Sitting; Pulse 58; me1 15:37 BP 166 / 58 Standing; Pulse 57; me1 16:00 BP 150 / 97; Pulse 58; Resp 12; Pulse Ox 95% on R/A; me1 17:00 BP 177 / 77; Pulse 59; Resp 14; Pulse Ox 95% on R/A; me1 11:56 Body Mass Index 27.26 (86.18 kg, 177.8 cm) mb9 11:56 Pain Scale: Adult mb9 [place] Coma Score: 15:15 Eye Response: spontaneous(4). Motor Response: obeys commands(6). Verbal Response: skyler oriented(5). Total: 15. NIH Stroke Scale Scores: 15:15 NIHSS Score: 0 skyler ED Course: 11:47 Patient arrived in ED. mr 11:54 Bret Hargrove MD is Attending Physician. skyler 11:56 Arm band placed on. mb9 11:57 Triage completed. mb9 12:11 CT Head Brain wo Cont In Process Unspecified. EDMS 12:15 Patient has correct armband on for positive identification. Bed in low position. Call me1 light in reach. Side rails up X2. Provided Education on: POC. Verbalized understanding. . Client placed on continuous cardiac and pulse oximetry monitoring. NIBP monitoring applied. engine monitor on. Pulse ox on. NIBP on. 12:15 No provider procedures requiring assistance completed. me1 12:27 Maria Guadalupe Michelle, RN is Primary Nurse. me1 12:37 Basic Metabolic Panel Sent. me1 12:37 CBC with Diff Sent. me1 12:38 Magnesium Sent. me1 12:38 NT PRO-BNP Sent. me1 12:38 PT-INR Sent. me1 12:38 Troponin HS Sent. me1 12:38 Lipase Sent. me1 12:38 Initial lab(s) drawn, by me, sent to lab. Inserted saline lock: 22 gauge in right me1 antecubital area, using aseptic technique. 12:44 Urine collected: clean catch specimen, clear. me1 12:45 Urinalysis w/ reflexes Sent. me1 13:05 EKG done, by ED staff, reviewed by Bret Hargrove MD. me1 13:08 XRAY Chest (1 view) In Process Unspecified. EDMS 16:00 US Carotid Artery Bilateral In Process Unspecified. EDMS 16:42 Jesus Cm MD is Referral Physician. skyler 17:35 IV discontinued, intact, bleeding controlled, No redness/swelling at site. Pressure me1 dressing applied. Administered Medications: 12:46 Drug: NS 0.9% IV 1000 ml IV at 1 bolus Per protocol; 1000 mL bolus Route: IV; Rate: 1 me1 bolus; Site: right antecubital; 14:08 Follow up: Response: No adverse reaction; IV Status: Completed infusion; IV Intake: me1 1000ml 15:37 Drug: NS 0.9% IV 500 ml IV at bolus once Route: IV; Rate: bolus; Site: right me1 antecubital; 17:35 Follow up: Response: No adverse reaction; IV Status: Completed infusion; IV Intake: me1 500ml 16:32 CANCELLED (Duplicate Order): mg PO once skyler 16:42 Not Given (Patient Refused): [id number] mg PO once skyler 17:00 Drug: Aspirin PO Chewable Tablet 81 mg PO once Route: PO; me1 17:35 Follow up: Response: No adverse reaction me1 Medication: 12:15 VIS not applicable for this client. me1 Intake: 14:08 IV: 1000ml; Total: 1000ml. me1 17:35 IV: 500ml; Total: 1500ml. me1 Outcome: 16:43 Discharge ordered by . skyler 17:35 Discharged to home ambulatory, with family, me1 17:35 Condition: stable 17:35 Discharge instructions given to patient, family, Instructed on discharge instructions, follow up and referral plans. medication usage, Demonstrated understanding of instructions, follow-up care, medications, Prescriptions given X 2, 17:36 Patient left the ED. me1 NIH Stroke Scale - NIH Stroke Score Date: 10/25/2023 Time: 15:15 Total Score = 0 10. Dysarthria (speech clarity - read or repeat words) - 0(Normal) 11. Extinction and Inattention (visual/tactile/auditory/spatial/personal) - 0(No abnormality) 1a. Level of Consciousness (LOC) - 0(Alert) 1b. Level of Consciousness (LOC) (Month \\T\\ Age) - 0(Both) 1c. LOC Commands (Open \\T\\ Closes Eyes/Channel Manager) - 0(Both) 2. Best Gaze (Lateral Gaze Paresis) - 0(Normal) 3. Visual Field Loss - 0(No visual loss) 4. Facial Palsy - 0(Normal) 5a. Left Arm: Motor (10-second hold) - 0(No drift) 5b. Right Arm: Motor (10-second hold) - 0(No drift) 6a. Left Leg: Motor (5-second hold - always test supine) - 0(No drift) 6b. Right Leg: Motor (5-second hold - always test supine) - 0(No drift) 7. Limb Ataxia (finger/nose \\T\\ heel/mcdowell - test with eyes open) - 0(Absent) 8. Sensory Loss (pinprick arms/legs/face) - 0(Normal) 9. Best Language: Aphasia (description/naming/reading) - 0(No aphasia) Initials: skyler Signatures: Dispatcher [employer] EDMS Bret Hargrove MD MD cha Rivera, Mary, Timothy ValentinkiGrace RN RN mb9 Maria Guadalupe Michelle RN RN me1 Corrections: (The following items were deleted from the chart) 11:59 11:56 Acuity: MIGUEL 3 mb9 mb9 11:59 11:56 Pulse 66bpm; Resp 18bpm; Pulse Ox 95% RA; Temp 97.8F; 86.18 kg; Height 5 mb9 ft. 10 in.; BMI: 27.2; Pain 0/10, Adult; mb9 14:09 11:56 Chief complaint: Patient states: "I was using the restroom and went to [facility] [place] my hands and passed out. I fell on the toilet and feel a little lightheaded. I'm on blood thinners but didn't hit my head." mb9
[2023-10-25] MEDS ORDERED: ASPIRIN 81 MG CHEWABLE TABLET ONE (16:59)
[2023-10-25 17:46] VITALS: TEMP 97.8; O2SAT 95
[2023-10-25 18:05] VITALS: BP 177/77
--- NOTE | 2023-10-26 13:52 | EKG ---
Test Date: 2023-10-25 Test Time: 13:01:13 Cooker Mechanic: MEASUREMENT RESULTS: Intervals: Rate: 55 MO: 188 QRSD: 142 QT: 530 QTc: 507 Heidrick: P: 69 MO: 188 QRS: -10 T: 59 INTERPRETIVE STATEMENTS: Sinus bradycardia with premature atrial complexes Right bundle branch block Possible Lateral infarct, age undetermined Possible Inferior infarct, age undetermined Abnormal ECG Compared to ECG 10/24/2019 14:23:38 Atrial premature complex(es) now present Right bundle-branch block now present Myocardial infarct finding now present Prolonged QT interval no longer present Electronically Signed On 10-26-23 13:49:05 CDT by Jesus Cm
== END 2023-10-25 17:36 | disposition home or self-care (01) ==
LOC: ER 11:42
DX: E86.0 Dehydration (principal); T67.5XXA Heat exhaustion, unspecified, initial encounter; I65.22 Occlusion and stenosis of left carotid artery; I12.9 Hypertensive chronic kidney disease with stage 1 through stage 4 chronic kidney disease, or unspecified chronic kidney disease; N18.9 Chronic kidney disease, unspecified; R42 Dizziness and giddiness; Z95.1 Presence of aortocoronary bypass graft
CPT/HCPCS: 36415; 70450; 71045; 80048; 80076; 81001; 83690; 83735; 83880; 84484; 85025; 85610; 93005; 93880; J7030; J7040

== ENCOUNTER 2023-12-06 12:21 | Emergency (ER) | payer OTHER ==
[2023-12-06] MEDS ORDERED: FLUORESCEIN SODIUM 1 MG/WRAP ONE (12:47)
[2023-12-06] MEDS ORDERED: TETRACAINE HCL 0.5% 4ML OPTH ONE (12:48)
--- NOTE | 2023-12-06 17:09 | EDPHYS ---
Physician Documentation [facility] Name: Matti Lyles Age: 78 yrs Sex: Male : 1945 Arrival Date: 12/06/2023 Time: 12:21 Bed DX1 Private MD: ED Physician Humza Mayen HPI: 12/05 12:55 This 78 yrs old Male presents to ER via Ambulatory with complaints of Eye rn Injury. 12:55 The patient sustained a puncture. Onset: The symptoms/episode began/occurred just prior rn to arrival. Associated signs and symptoms: Pertinent negatives:. Patient does not utilize any form of vision correction. Severity of symptoms: At their worst the symptoms were very mild. Patient reports walking out of a store when another patrons fishing pole and hook caught his right eyelid. Eye was closed. No injury to the eyeball itself. No foreign body sensation or scrape. Right eye is not watery. printed circuit board reworker removed fishhook from eyelid and patient states feels much better but told to come for evaluation. Denies any pain or problem to the right eyeball itself.. Historical: - Allergies: 12:46 No Known Allergies; ap3 - PMHx: 12:46 Hypercholesterolemia; Hypertensive disorder; Myocardial infarction; ap3 - PSHx: 12:46 cardiac bypass; ap3 - Immunization history:: Client reports receiving the 2nd dose of the Covid vaccine. - Infectious Disease History:: Denies. - Social history:: Smoking status: Patient denies any tobacco usage or history of. - Family history:: not pertinent. - Hospitalizations: : No recent hospitalization is reported. ROS: 12:55 Constitutional: Negative for fever, chills, and weight loss, Eyes: Positive for rn superficial fishhook puncture to the right eyelid Exam: 12:55 Constitutional: This is a well developed, well nourished patient who is awake, alert, rn and in no acute distress. Eyes: Right eyelid with superficial 1 cm vertical laceration, does not gape open, no active bleeding, no foreign body. Right eyeball with normal exam, no fluorescein uptake, negative Meeta sign, pupil is equally round and reactive to light. Laceration does not extend through eyelid. No foreign body noted. Vital Signs: 12:44 BP 123 / 63; Pulse 70; Resp 18; Pulse Ox 99% ; Weight 86.18 kg; Height 5 ft. 10 in. ; ap3 Pain 1/10; 12:44 Body Mass Index 27.26 (86.18 kg, 177.8 cm) ap3 12:44 Pain Scale: Adult ap3 MDM: 12:38 Patient medically screened. rn 12:55 Differential diagnosis: right eyelid laceration. Data reviewed: vital signs, nurses rn notes, and as a result, I will discharge patient. Counseling: I had a detailed discussion with the patient and/or guardian regarding the historical points, exam findings, and any diagnostic results supporting the discharge/admit diagnosis, the need for outpatient follow up, to return to the emergency department if symptoms worsen or persist or if there are any questions or concerns that arise at home. Special discussion: I discussed with the patient/guardian in detail that at this point there is no indication for admission to the hospital. It is understood, however, that if the symptoms persist or worsen the patient needs to return immediately for re-evaluation. ED course: Very small wound, superficial to right eyelid likely secondary to pulling out fishhook. No indication for sutures at this time, no evidence of corneal or scleral or eyeball injury. Will discharge home with return precautions.. Administered Medications: 12:58 Drug: Fluorescein Ophthalmic Strip 1 strip Ophthalmic once {Note: by dr mayen.} Route: ap3 Ophthalmic; Site: right eye; 12:59 Drug: Tetracaine Ophthalmic Drops 0.5 % 1 drops Ophthalmic once {Note: by dr mayen.} ap3 Route: Ophthalmic; Site: right eye; Disposition Summary: 12/06/23 12:58 Discharge Ordered Notes: Location: Home rn Problem: new rn Symptoms: have improved rn Condition: Stable rn Diagnosis - Laceration without foreign body of right eyelid and periocular area, initial rn encounter Followup: rn - With: Private Physician - When: As needed - Reason: Recheck today's complaints, Re-evaluation by your physician Discharge Instructions: - Discharge Summary Sheet rn - Laceration Care, Adult rn - Wound Care, Adult rn - Kingfisher Removal rn Forms: - Medication Reconciliation Form rn - Antibiotic return to vendor - Prescription Opioid Use rn - Patient Portal Instructions rn - Leadership Thank You Letter rn Signatures: Humza Mayen MD MD rn Prokisch, Amanda, RN RN ap3
--- NOTE | 2023-12-06 17:09 | ER ---
Nurse's Notes [facility] Name: Matti Lyles Age: 78 yrs Sex: Male : 1945 Arrival Date: 12/06/2023 Time: 12:21 Bed DX1 Private MD: Diagnosis: Laceration without foreign body of right eyelid and periocular area, initial encounter Presentation: 12/05 12:44 Chief complaint: Patient states: he was leaving a store, when he walked into a fishing ap3 pole and got a hook caught in his right eyelid. patient reports the hook was removed from the eyelid by a bystander LAWN MOWER MECHANIC. patient states he does not have any blurry vision or changes in vision at this time. Coronavirus screen: At this time, the client does not indicate any symptoms associated with coronavirus-19. Ebola Screen: No symptoms or risks identified at this time. Mechanism of Injury: Laceration sustained. The patient denies any loss of vision. Initial Sepsis Screen: Does the patient meet any 2 criteria? No. Patient's initial sepsis screen is negative. Does the patient have a suspected source of infection? No. Patient's initial sepsis screen is negative. Risk Assessment: Do you want to hurt yourself or someone else? Patient reports no desire to harm self or others. Onset of symptoms was December 06, 2023. 12:44 Method Of Arrival: Ambulatory ap3 12:44 Acuity: MIGUEL 4 ap3 Triage Assessment: 12:46 General: Appears in no apparent distress. Behavior is calm, cooperative, appropriate ap3 for age. Pain: Complains of pain in right supraorbital ridge Pain currently is 1 out of 10 on a pain scale. EENT: Lid(s) wound noted to right eye lid. Neuro: Level of Consciousness is awake, alert, obeys commands, Oriented to person, place, time, situation, Appropriate for age. Cardiovascular: Patient's skin is warm and dry. Respiratory: Airway is patent Respiratory effort is even, unlabored, Respiratory pattern is regular, symmetrical. Derm: Wound noted right supraorbital ridge. Historical: - Allergies: 12:46 No Known Allergies; ap3 - PMHx: 12:46 Hypercholesterolemia; Hypertensive disorder; Myocardial infarction; ap3 - PSHx: 12:46 cardiac bypass; ap3 - Immunization history:: Client reports receiving the 2nd dose of the Covid vaccine. - Infectious Disease History:: Denies. - Social history:: Smoking status: Patient denies any tobacco usage or history of. - Family history:: not pertinent. - Hospitalizations: : No recent hospitalization is reported. Screenin:[facility] ED Fall Risk Assessment (Adult) History of falling in the last 3 months, ap3 including since admission No falls in past 3 months (0 pts) Confusion or Disorientation No (0 pts) Intoxicated or Sedated No (0 pts) Impaired Gait No (0 pts) Mobility Assist Device Used No (0 pt) Altered Elimination No (0 pt) Score/Fall Risk Level 0 - 2 = Low Risk Oriented to surroundings, Maintained a safe environment, Educated pt \T\ family on fall prevention, incl call for assistance when getting out of bed, Assessed \T\ reinforced patient's understanding of fall precautions, Hourly rounding (assess needs \T\ fall precautionary measures) done, Used ambulatory aids as needed (educated on \T\ assisted with), Used gait belt as appropriate. Abuse screen: Denies threats or abuse. Nutritional screening: No deficits noted. Tuberculosis screening: No symptoms or risk factors identified. Assessment: 13:07 EENT: Eyes laceration to right eye lid. ap3 Vital Signs: 12:44 BP 123 / 63; Pulse 70; Resp 18; Pulse Ox 99% ; Weight 86.18 kg; Height 5 ft. 10 in. ; ap3 Pain 1/10; 12:44 Body Mass Index 27.26 (86.18 kg, 177.8 cm) ap3 12:44 Pain Scale: Adult ap3 ED Course: 12:24 Patient arrived in ED. ra3 12:38 Humza Mayen MD is Attending Physician. rn 12:46 Triage completed. ap3 12:52 Arm band placed on left wrist. ap3 12:52 Patient has correct armband on for positive identification. ap3 13:06 Provided Education on: wound care. ap3 13:06 No provider procedures requiring assistance completed. Patient did not have IV access ap3 during this emergency room visit. Administered Medications: 12:58 Drug: Fluorescein Ophthalmic Strip 1 strip Ophthalmic once {Note: by dr mayen.} Route: ap3 Ophthalmic; Site: right eye; 12:59 Drug: Tetracaine Ophthalmic Drops 0.5 % 1 drops Ophthalmic once {Note: by dr mayen.} ap3 Route: Ophthalmic; Site: right eye; Medication: 13:07 VIS not applicable for this client. ap3 Outcome: 12:58 Discharge ordered by . kenroy 13:06 Discharged to home ambulatory, ap3 13:06 Condition: good 13:06 Discharge instructions given to patient, Instructed on discharge instructions, follow up and referral plans. wound care, Demonstrated understanding of instructions, follow-up care, wound care, 13:07 Patient left the ED. ap3 Signatures: Humza Mayen MD MD rn Prokisch, Amanda, RN RN ap3 Rebeca Page
[2023-12-07 02:11] VITALS: BP 123/63; O2SAT 99
== END 2023-12-06 13:07 | disposition home or self-care (01) ==
LOC: ER 12:21
DX: S01.111A Laceration without foreign body of right eyelid and periocular area, initial encounter (principal)
CPT/HCPCS: 99283